=== PATIENT | female | born 1975 | race Caucasian/White ===

== ENCOUNTER 2021-01-12 23:42 | Emergency (ER) | payer OTHER ==
[~2021-01-12] VITALS: Ht 160 cm; Wt 69.8 kg
[~2021-01-12 23:42] MED LIST: NORCO 5-325 TA1 EAC1 PO; SERTRALINE HCL50 MG PO
[2021-01-13] MEDS ORDERED: FLEXERIL PO (00:29)
[2021-01-13] MEDS ORDERED: LISINOPRIL10 MG PO (00:30)
[2021-01-13] MEDS ORDERED: DICLOFENAC (00:30)
[2021-01-13 00:53] LABS: URINE BILIRUBIN NEGATIVE (Negative); URINE BLOOD NEGATIVE (Negative); URINE CLARITY CLEAR; URINE COLOR YELLOW; URINE GLUCOSE-RANDOM NEGATIVE (Negative); URINE KETONES NEGATIVE (Negative); URINE LEUKOCYTES-REFLEX NEGATIVE (Negative); URINE NITRITE-REFLEX NEGATIVE (Negative); URINE PROTEIN NEGATIVE (Negative); URINE SPECIFIC GRAVITY >= 1.030 (1.005-1.030); URINE UROBILINOGEN 0.2 E.U./dl (0.2-1.0)
[2021-01-13 01:00] LABS: AMP/METHAMP Negative (Negative); BARBITURATES Negative (Negative); BENZODIAZEPINES Negative (Negative); COCAINE Negative (Negative); METHADONE Negative (Negative); OPIATES Negative (Negative); PCP Negative (Negative); THC Negative (Negative)
[2021-01-13 01:43] VITALS: BP 129/88
--- NOTE | 2021-01-13 15:34 | EKG ---
[place] [address] ELECTROCARDIOGRAM REPORT Name: MARTHA LUXY Shabnam Room: [facility]#: [id number] Admission: 01/12/21 Attend Phys: Discharge: 01/13/21 Date of : 79 Date of Service: 01/12/21 2349 Report #: [id number] THIS REPORT FOR: //name// [facility] ED Test Date: 2021-01-12 Test Time: 23:49:49 Pat Name: BIJAN LUX Department: Room: Gender: F Director Software Development: [place] : 1975 Requested By: Elsi Betts Order Number: [id number] MD: Oleg Reddy Measurements Intervals [place] Rate: 99 P: 52 DC: 146 QRS: 8 QRSD: 91 T: 58 QT: 342 QTc: 439 Interpretive Statements Sinus rhythm Baseline wander in lead(s) II,III,aVF No previous ECG available for comparison Electronically Signed On 01-13-2021 15:33:55 [employer]ENTER TRA[employer] by Oleg Reddy [email or web address] <ELECTRONICALLY SIGNED> By: Oleg Reddy MD, FAC 01/13/21 1533 2349 2349 Oleg Reddy MD, [facility] /EPI
== END 2021-01-13 01:44 | disposition home or self-care (01) ==
LOC: M.ERS 23:42
PROVIDERS: Personal Emergency Response Attendant
DX: K59.00 Constipation, unspecified (principal); M79.671 Pain in right foot; F41.9 Anxiety disorder, unspecified; F32.9 Major depressive disorder, single episode, unspecified